=== PATIENT | female | born 1950 | race Caucasian/White ===

== ENCOUNTER → 2020-01-15 11:30 | Outpatient (BNVA) | payer MEDICARE, SELFPAY | PROVIDERS: PCP Family Medicine; Visit Provider Internal Medicine Rheumatology | DX: M05.9 Rheumatoid arthritis with rheumatoid factor, unspecified (principal); Z79.899 Other long term (current) drug therapy; R21 Rash and other nonspecific skin eruption; I25.10 Atherosclerotic heart disease of native coronary artery without angina pectoris; Z87.891 Personal history of nicotine dependence | CPT/HCPCS: 99204 ==

== ENCOUNTER 2020-01-15 13:23 | Outpatient (CLI) | payer MEDICARE, OTHER, SELFPAY ==
--- NOTE | 2020-01-15 13:35 | XR_ITS ---
WS: [id number] XR foot LT min 3V* [id number] REASON FOR EXAM: inflammatory arthritis FINDINGS: Hallux valgus changes of the first metatarsal phalangeal junction. A cyst is seen in the pr oximal portion of the first phalanx. The remaining phalanges were normal. The remaining metacarpal tarsals show no abnormalities. The tarsal bones were normal. A large calcaneal spur is seen. XR/XR foot LT min 3V* [id number] IMPRESSION: Calcaneal spur Mild hallux valgus changes Cyst of the proximal first phalanx.
--- NOTE | 2020-01-15 13:35 | XR_ITS ---
WS: [id number] XR hand RT min 3V* [id number] REASON FOR EXAM: inflammatory arthritis FINDINGS: Soft tissue swelling of the interphalangeal joints of the second, third, fourth, fifth phal anges. No lytic changes or destructive changes. No fractures or other dyscrasias. XR/XR hand RT min 3V* [id number] IMPRESSION: Right swelling of the interphalangeal joints of the second, third, fourth, fift h phalanges.
--- NOTE | 2020-01-15 13:35 | XR_ITS ---
WS: [id number] XR foot RT min 3V* [id number] REASON FOR EXAM: inflammatory arthritis FINDINGS: No degenerate changes of the base of the fifth metatarsal. Small tailor's bunion is seen. The remaining phalanges metatarsals and tarsals are normal. A prominent calcaneal spur is seen with retrocalcaneal exostosis. XR/XR foot RT min 3V* [id number] IMPRESSION: Calcaneal spur with retrocalcaneal exostosis Mild osteoarthritis.
--- NOTE | 2020-01-15 13:35 | XR_ITS ---
WS: [id number] XR chest 2V* [id number] REASON FOR EXAM: inflammatory arthritis FINDINGS: The heart and mediastinal interfaces are normal. There is arteriosclerotic changes seen in the arch the aorta. The lung tobias are well aerated. No pneumonia, pleural effusion, pulmonary edema, mass effect, are p neumothorax. The hilum and apices are normal. No osseous abnormalities. XR/XR chest 2V* [id number] IMPRESSION: Arteriosclerotic changes of the arch of the aorta.
--- NOTE | 2020-01-15 13:35 | XR_ITS ---
WS: [id number] XR hand LT min 3V* [id number] REASON FOR EXAM: inflammatory arthritis FINDINGS: Soft tissue swelling of the hand is seen. No destructive changes are noted. The first metacarpal carpal carpal articulation shows early osteoarthritic changes. No fractures or other dyscrasias. 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
== END 2020-01-15 13:24 | disposition home or self-care (01) ==
LOC: RADWPI 13:33
PROVIDERS: Family Provider Family Medicine; PCP Family Medicine; Visit Provider Internal Medicine Rheumatology
DX: M19.90 Unspecified osteoarthritis, unspecified site (principal); M77.31 Calcaneal spur, right foot; M89.9 Disorder of bone, unspecified; M19.071 Primary osteoarthritis, right ankle and foot; M20.12 Hallux valgus (acquired), left foot; M77.32 Calcaneal spur, left foot
CPT/HCPCS: 71046; 73130; 73630

== ENCOUNTER → 2020-04-23 09:56 | Outpatient (BNVA) | payer MEDICARE, SELFPAY | PROVIDERS: Family Provider Family Medicine; PCP Family Medicine; Visit Provider Internal Medicine Rheumatology | DX: M05.79 Rheumatoid arthritis with rheumatoid factor of multiple sites without organ or systems involvement (principal); Z79.899 Other long term (current) drug therapy; M75.51 Bursitis of right shoulder; R21 Rash and other nonspecific skin eruption | CPT/HCPCS: 20610; 99214; J1030 ==